=== PATIENT | female | born 1955 | race African-American/Black ===

== ENCOUNTER 2023-07-12 04:00 | Emergency (ER) | payer MEDICARE ==
[~2023-07-12] VITALS: Ht 180.3 cm; Wt 113.0 kg
[2023-07-12 04:02] VITALS: O2SAT 97
[2023-07-12] MEDS ORDERED: IOHEXOL-350 100 ML BOTTLE ONE (04:46)
[2023-07-12 05:22] LABS: HEMATOCRIT. 35.5 % (36.0-48.0); HEMOGLOBIN. 11.6 g/dL (12.0-16.0); MEAN CORPUSCULAR HEMOGLOBIN 29.1 pg (28.0-32.0); MEAN CORPUSCULAR HGB CONC 32.6 g/dL (31.0-37.0); MEAN CORPUSCULAR VOLUME 89.4 fL (81.0-99.0); MEAN PLATELET VOLUME 9.6 fl (7.4-10.4); PLATELET 129 x1000/uL (130-400); RED BLOOD CELL COUNT 3.97 mill/uL (4.2-5.4); RED CELL DISTRIBUTION WIDTH 17.9 % (11.6-14.6); WHITE BLOOD COUNT 3.2 x1000/uL (4.5-11.0)
[2023-07-12 05:36] LABS: DIFFERENTIAL COMMENT 1
[2023-07-12 06:03] LABS: ALANINE AMINOTRANSFERASE 23 IU/L (10-49); ALBUMIN 3.5 g/dL (3.2-4.8); ASPARTATE AMINOTRANSFERASE 44 IU/L (<34); BILIRUBIN TOTAL 0.3 mg/dL (0.1-1.0); CALCIUM 9.2 mg/dL (8.7-10.4); CARBON DIOXIDE 28 mEq/L (21-32); CHLORIDE 106 mEq/L (98-107); CREATININE 1.1 mg/dL (0.6-1.0); POTASSIUM 4.6 mEq/L (3.5-5.1); PROTEIN TOTAL 6.6 g/dL (6.0-8.3); SODIUM 137 mEq/L (136-145); UREA NITROGEN BLOOD 10 mg/dL (9-23)
[2023-07-12 06:08] LABS: ETHANOL BLOOD < 10 mg/dL (<10); GLUCOSE 47 mg/dL (70-105)
[2023-07-12] MEDS ORDERED: DEXTROSE 10% WATER 500 ML IV ONE (06:15)
[2023-07-12 06:47] LABS: TROPONIN I HIGH SENSITIVITY 4 ng/L (3.0-34)
[2023-07-12] MEDS ORDERED: GUAIFENESIN 200MG/10ML SUGAR FREE UDC PO PRN (09:15)
[2023-07-12] MEDS ORDERED: ACETAMINOPHEN 325MG TABLET PO PRN (09:15)
[2023-07-12] MEDS ORDERED: DIPHENHYDRAMINE 50MG/ML VIAL IV PRN (09:15)
[2023-07-12] MEDS ORDERED: NA PHOS,M-B/NA PHOS,DI-BA ENEMA 118ML PR PRN (09:15)
[2023-07-12] MEDS ORDERED: DEXT 5%/0.45% NACL 1000ML 1,000 ML IV SCH (09:15)
[2023-07-12] MEDS ORDERED: ACETAMINOPHEN 650MG SUPP PR PRN (09:15)
[2023-07-12] MEDS ORDERED: DEXTROSE 50% WATER 50ML SYRINGE IV PRN (09:15)
[2023-07-12] MEDS ORDERED: DOCUSATE SODIUM 100MG CAPSULE PO PRN (09:15)
[2023-07-12] MEDS ORDERED: ONDANSETRON HCL 4MG/2ML INJ IV PRN (09:15)
[2023-07-12] MEDS ORDERED: MAGNESIUM/ALUMINUM HYDROXIDE/SIMETHICONE 30ML UDC PO PRN (09:15)
[2023-07-12] MEDS ORDERED: HYDROCODONE/ACETAMINOPHEN 5/325MG TABLET PO PRN (09:15)
[2023-07-12] MEDS ORDERED: IPRATROPIUM/ALBUTEROL 0.5-3(2.5)MG/3ML NEB NEB PRN (09:15)
[2023-07-12] MEDS ORDERED: MECLIZINE 25MG TABLET PO PRN (09:15)
[2023-07-12] MEDS ORDERED: MORPHINE SULFATE 2 MG/ML CPJ (NOT FOR IM USE) IV PRN (09:15)
[2023-07-12] MEDS ORDERED: PANTOPRAZOLE 40MG DR TABLET PO SCH (09:30)
[2023-07-12] MEDS: BLOOD SUGAR DIAGNOSTIC STRIP TEST SCH ×2 (10:30→13:15)
[2023-07-12 11:00] LABS: PROTHROMBIN TIME 10.5 sec (9.6-11.0)
[2023-07-12 12:00] VITALS: BP 154/91; PULSE 93; RESP 12
[2023-07-12 13:48] LABS: ANISOCYTOSIS 1+; PLATELET ESTIMATE SLIGHTLY DECREASED
[2023-07-12] MEDS ORDERED: INSU100V3 SUBCUT (16:44)
== END 2023-07-12 17:00 | disposition home or self-care (01) ==
LOC: ER 04:37 → EDBEDREQTM 05:35 → EDBEDREQ 05:35 → EDBEDREQSVC 05:35 → ER 17:00 → CANBEDREQ 18:32
DX: R27.0 Ataxia, unspecified (principal); E11.9 Type 2 diabetes mellitus without complications; I10 Essential (primary) hypertension
CPT/HCPCS: 80053; 80320; 82962; 85025; 85610; 84484; 36415; 71045; 70496; 70498; 70450; 93970; 70551; 96360; 96361; 99291; Q9967; G0480